=== PATIENT | female | born 1945 | race Caucasian/White ===

== ENCOUNTER 2022-03-26 22:08 | Emergency (ER) | payer MEDICARE, OTHER ==
[~2022-03-26] VITALS: Ht 157.5 cm; Wt 84.0 kg
--- NOTE | 2022-03-26 22:29 | ED Head Injury ---
General Chief Complaint: Trauma-Non Activation Stated Complaint: HEAD INJURY Source: patient Exam Limitations: no limitations (NAUN RIVAS) History of Present Illness Date Seen by Provider: Mar 26, 2022 Time Seen by Provider: 22:27 Initial Comments Patient is a 76-year-old female who presents ED posterior head pain. Patient fell 30 minutes ago while [place] the [place] theater. She states she lost her balance while using her cane hitting the back part of her head. No loss of consciousness. She states she did feel dazed after the fall. She is not on blood thinners. She reports mild head pain without dizziness, visual changes, vomiting, unilateral muscle weakness or sensory changes. She denies any neck pain. She is moving all extremities without difficulties. Patient believes she lost her balance. She denies of any syncope before the fall. Denies chest pain, shortness of breath, abdominal pain (NAUN RIVAS) Allergies and Home Medications Allergies Coded Allergies: No Known Drug Allergies (Verified Allergy, Unknown, 05/16/09) Patient Home Medication List Home Medication List Reviewed: Yes (NAUN RIVAS) Review of Systems Review of Systems Constitutional: No chills, No diaphoresis, No malaise, No weakness Eyes: Denies Blindness, Denies Blurred Vision, Denies Drainage, Denies Decreased Acuity Ears, Nose, Mouth, Throat: denies ear pain, denies ear discharge Respiratory: No cough, No dyspnea on exertion Cardiovascular: No chest pain Gastrointestinal: No abdominal pain, No diarrhea, No nausea, No vomiting Musculoskeletal: No back pain, No joint pain, No muscle pain, No muscle stiffness Skin: change in color, change in hair/nails, other (contusion) (NAUN RIVAS) All Other Systems Reviewed Negative Unless Noted: Yes (NAUN RIVAS) Past Kngtqav-Oqynbi-Zikloi Hx Past Medical History Reproductive Disorders: No (NAUN RIVAS) Physical Exam Vital Signs Vital Signs - First Documented (CECILIA LEBLANC DO) Vital Signs Capillary Refill : (NAUN RIVAS) Height, Weight, BMI Height: '" Weight: lbs. oz. kg; BMI Method: General Appearance: WD/WN, no apparent distress HEENT: PERRL/EOMI, normal ENT inspection, TMs normal, pharynx normal, other (Contusion posterior scalp.) Neck: non-tender, full range of motion Cardiovascular: regular rate, rhythm, no edema, no gallop, no JVD Respiratory: chest non-tender, lungs clear, normal breath sounds, no respiratory distress Gastrointestinal: normal bowel sounds, non tender, soft Back: normal inspection, no CVA tenderness Extremities: normal range of motion, non-tender Psychiatric: alert, oriented x 3 Skin: other (Contusion to the posterior scalp. No crepitus or step-off.) (NAUN RIVAS) Progress/Results/Core Measures Results/Orders Vital Signs/I&O 03/26/22 03/26/22 03/27/22 22:08 22:08 00:32 Temp 36.7 Pulse 65 65 63 Resp 16 16 16 B/P (MAP) 140/79 (99) 140/79 (99) 150/68 Pulse Ox 98 98 98 O2 Delivery Room Air Room Air Room Air (CECILIA LEBLANC DO) Departure Communication (PCP) Patient with a mechanical fall. She tripped while using her cane. GCS 15. Alert and orient x3. Contusion to her posterior scalp. Ice was applied. Was given a dose of tramadol. Neuro exam unremarkable. CT scan of the head and cervical neck was negative for acute abnormality. Chronic findings were noted. Patient with a steady gait. She is not on blood thinners. She denies worsening head pain, vomiting, visual changes. No neurologic or left flank findings. Discussed potential mild concussion. Continue observing at home. If any worsening symptoms return back to ED. This was discussed with patient and family they agree with plan of action. Continue with ice for the swelling. (NAUN RIVAS) Impression Primary Impression: Head contusion Disposition: 01 HOME, SELF-CARE Condition: Stable Departure-Patient Inst. Decision time for Depature: 22:46 (NAUN RIVAS) Referrals: CECILIA SHEA MD (PCP) Primary Care Physician Patient Instructions: Contusion (DC) ATTENDING PHYSICIAN NOTE: I WAS PHYSICALLY PRESENT ER PHYSICIAN, BUT I WAS NOT INVOLVED IN ANY DECISION MAKING OR ANY CARE OF PT. (CECILIA LEBLANC DO) NAUN RIVAS Mar 26, 2022 22:29 CECILIA LEBLANC DO Mar 27, 2022 01:13
[2022-03-27 00:32] VITALS: BP 150/68
--- NOTE | 2022-03-27 07:51 | Diagnostic Imaging Report ---
PROCEDURE: CT head and CT cervical spine without contrast. TECHNIQUE: Multiple contiguous axial images were obtained through the brain and cervical spine without the use of intravenous contrast. Sagittal and coronal reformations through the cervical spine were then performed. Auto Exposure Controls were utilized during the CT exam to meet ALARA standards for radiation dose reduction. INDICATION: Injured in fall presents with headache and neck pain Comparisons: None CT head without contrast: FINDINGS: The midline structures are not displaced. Lateral, 3rd and 4th ventricles are normal in size, shape and anatomic position. There is a generalized atrophy with involutional changes, slightly advanced for age. There is a frontal and temporal lobe predominance the generalized atrophy. Morejon-white differentiation is maintained and there is no sulcal effacement. There are no abnormal extra-axial fluid collections or hemorrhage. Background chronic areas of microvascular ischemic change noted. Basilar cisterns appear normal. Sinuses, orbits and mastoid cells are unremarkable. Bone windows show no evidence of acute fractures. There is a right parietal scalp hematoma. IMPRESSION: 1. Senescent brain with involutional changes and generalized atrophy with a frontal and temporal predominance to the atrophy. Background chronic areas of microvascular ischemic change noted. Overall no acute findings identified by nonenhanced CT criteria. Additional nonemergent findings as described above. 2. Small right parietal scalp hematoma. CT cervical spine with reconstructions: FINDINGS: Axial images in sagittal and coronal reconstructions of the cervical spine show moderate cervical spondylosis. There is grade 1 anterolisthesis of C4 on C5 which is felt to be degenerative in nature. Multilevel hypertrophic facet changes are also present. Vertebral body heights appear well-maintained. Prevertebral soft tissue as well as a relationship of the dens to the lateral mass of C1 is also normal. No evidence of acute fracture or acute subluxation demonstrated. Lung apices show some diffuse atelectasis. There is also some scarring in both apices right more so than left. Superior mediastinum is grossly unremarkable. There is a 1.2 cm right thyroid nodule which could be additionally characterized by ultrasound. This is nonspecific cervical lymph nodes most likely reactive in nature. There is some calcific atherosclerosis of the carotid bifurcations. IMPRESSION: 1. Cervical spondylosis with moderate degenerative changes throughout the cervical spine. There is grade 1 anterolisthesis of C4 on C5 which is felt to be degenerative in nature. Overall however no acute findings identified by nonenhanced CT criteria. 2. There is some nonspecific cervical lymphadenopathy most likely reactive in nature. 3. 1.2 cm low density lesion in the right thyroid could be additionally characterized by ultrasound. 4. 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 5. COPD. Agree with [facility] report. Dictated by: Dictated on workstation # [id number]
== END 2022-03-27 00:25 | disposition home or self-care (01) ==
LOC: EDUNIT# 22:08 → ER 22:13
DX: S00.03XA Contusion of scalp, initial encounter (principal); W01.0XXA Fall on same level from slipping, tripping and stumbling without subsequent striking against object, initial encounter; Y92.26 Movie house or cinema as the place of occurrence of the external cause
CPT/HCPCS: 70450; 72125